=== PATIENT | female | born 1985 | race Two or more races ===

== ENCOUNTER 2020-04-05 16:21 | Emergency (ER) | payer MEDICAID, OTHER ==
[~2020-04-05] VITALS: Ht 165.1 cm; Wt 63.0 kg
[2020-04-05] MEDS ORDERED: SODIUM CHLORIDE 0.9% 1,000 ML IVB ONE (17:09)
[2020-04-05 17:39] LABS: Basophils # (auto) 0 10 ^3/uL (0-0.2); Basophils % (auto) 0.6 % (0.0-2.0); Eosinophils # (auto) 0.1 10 ^3/uL (0-0.8); Eosinophils % (auto) 1.9 % (0.0-7.0); Hematocrit 43.7 % (36.0-46.0); Hemoglobin 14.6 g/dL (12.2-16.2); Lymphocytes # (auto) 1.7 10 ^3/uL (0.4-5.4); Lymphocytes % (auto) 26.8 % (10.0-50.0); Mean Corpuscular Hemoglobin 29.6 pg (28.0-32.0); Mean Corpuscular Hgb Conc. 33.5 g/dL (32.0-36.0); Mean Corpuscular Volume 88.3 fL (80.0-100.0); Monocytes # (auto) 0.5 10 ^3/uL (0-1.3); Monocytes % (auto) 7.6 % (0.0-12.0); Neutrophils % (auto) 63.1 % (37.0-80.0); Platelet Count (auto) 222 10^3/uL (140-450); Red Blood Cells 4.94 10^6/uL (4.0-5.20); Red Cell Distribution Width 12.8 % (11.8-14.3); White Blood Cell 6.4 10^3/uL (4.4-10.8)
[2020-04-05 17:55] LABS: Salicylate < 1.7 mg/dL (2.8-20.0)
[2020-04-05 17:57] LABS: Acetaminophen < 2.0 ug/mL (10-30)
[2020-04-05 17:58] LABS: Alanine Aminotransferase 17 U/L (13-56); Albumin 3.7 g/dL (3.4-5.0); Anion Gap 3 (5-15); Blood Alcohol < 3.0 mg/dL (0-5); Blood Urea Nitrogen 7 mg/dL (7-18); Calcium 8.8 mg/dL (8.5-10.1); Carbon Dioxide 28 mmol/L (21-32); Chloride 112 mmol/L (98-107); Glucose 78 mg/dL (74-106); Potassium 3.6 mmol/L (3.5-5.1); Sodium 143 mmol/L (136-145)
[2020-04-05 18:01] LABS: Alkaline Phosphatase 67 U/L (45-117); Aspartate Aminotransferase 12 U/L (15-37); BUN/Creatinine Ratio 9.3; Bilirubin, Total 0.2 mg/dL (0.2-1.0); Creatine Kinase IFCC 50 U/L (26-192); GFR African American 113 mL/min; GFR Non-African American 93 mL/min; Total Protein 7.2 g/dL (6.4-8.2)
[2020-04-05 20:38] LABS: Urine Amorphous Crystal FEW /hpf (None Seen); Urine Bacteria FEW /hpf (None Seen); Urine Blood Negative /uL (Negative); Urine Mucus FEW (None Seen); Urine Specific Gravity 1.021 (1.001-1.035); Urine WBC 11 /hpf (0 - 5)
[2020-04-05 20:44] LABS: Amphetamine Screen, Urine NEGATIVE (NEGATIVE); Barbiturate Scree,Urine NEGATIVE (NEGATIVE); Benzodiazephine Screen, Urine POSITIVE (NEGATIVE); Cannabinoid Screen, Urine NEGATIVE (NEGATIVE); Opiate Scree,Urine NEGATIVE (NEGATIVE)
[2020-04-05 20:51] LABS: Cocaine Screen, Urine NEGATIVE (NEGATIVE); Phencyclidine Screen, Urine NEGATIVE (NEGATIVE)
[2020-04-06] MEDS ORDERED: LORazepam 0.5 MG TAB ONE (17:23)
[2020-04-07 07:59] VITALS: BP 105/79
== END 2020-04-07 03:31 | disposition short-term general hospital (02) ==
LOC: ER 16:21 → EDBD 16:21 → ER 04-07 03:31
DX: T42.4X2A Poisoning by benzodiazepines, intentional self-harm, initial encounter (principal); F32.9 Major depressive disorder, single episode, unspecified; Z20.828 Contact with and (suspected) exposure to other viral communicable diseases; Y92.89 Other specified places as the place of occurrence of the external cause
CPT/HCPCS: 36415; 71045; 80053; 80307; 80320; 80329; 81001; 81025; 82550; 83735; 84702; 85025; 93005; 99285; C9803; J7030; U0003

== ENCOUNTER 2022-06-24 16:53 | Emergency (ER) | payer MEDICAID ==
[~2022-06-24] VITALS: Ht 165.1 cm; Wt 50.0 kg
[2022-06-24 17:39] LABS: Basophils # (auto) 0 10 ^3/uL (0-0.2); Basophils % (auto) 0.6 % (0.0-2.0); Eosinophils # (auto) 0 10 ^3/uL (0-0.8); Eosinophils % (auto) 0.7 % (0.0-7.0); Hematocrit 40.1 % (36.0-46.0); Hemoglobin 13.4 g/dL (12.2-16.2); Lymphocytes # (auto) 1.8 10 ^3/uL (0.4-5.4); Lymphocytes % (auto) 31.3 % (10.0-50.0); Mean Corpuscular Hemoglobin 29.5 pg (28.0-32.0); Mean Corpuscular Hgb Conc. 33.5 g/dL (32.0-36.0); Mean Corpuscular Volume 88.1 fL (80.0-100.0); Monocytes # (auto) 0.5 10 ^3/uL (0-1.3); Monocytes % (auto) 8.6 % (0.0-12.0); Neutrophils # (auto) 3.4 10 ^3/uL (1.6-8.6); Neutrophils % (auto) 58.8 % (37.0-80.0); Nucleated Red Blood Cells % 0.1 %; Red Blood Cells 4.55 10^6/uL (4.0-5.20); White Blood Cell 5.8 10^3/uL (4.4-10.8)
[2022-06-24 18:01] LABS: BUN/Creatinine Ratio 17.2; Calcium 8.6 mg/dL (8.5-10.1); Potassium 3.5 mmol/L (3.5-5.1)
[2022-06-24 18:04] LABS: Bilirubin, Total 0.3 mg/dL (0.2-1.0); Total Protein 7.4 g/dL (6.4-8.2)
[2022-06-24 18:21] LABS: Urine Bacteria FEW /hpf (None Seen); Urine Blood Negative /uL (Negative); Urine Mucus FEW (None Seen); Urine Specific Gravity 1.042 (1.001-1.035); Urine WBC 4 /hpf (0 - 5)
[2022-06-24] MEDS ORDERED: NITROFURANTOIN 100 mg CAP PO ONE (20:15)
[2022-06-24] MEDS ORDERED: CEFD300C2 PO (21:04)
[2022-06-24 22:55] VITALS: BP 121/70
== END 2022-06-24 23:03 | disposition home or self-care (01) ==
LOC: ER 16:53
DX: R20.2 Paresthesia of skin (principal); N39.0 Urinary tract infection, site not specified; I45.6 Pre-excitation syndrome; R07.89 Other chest pain; Z79.899 Other long term (current) drug therapy
CPT/HCPCS: 36415; 70450; 70496; 71045; 80053; 81001; 81025; 84702; 85025; 93005